=== PATIENT | male | born 1945 | race Caucasian/White ===

== ENCOUNTER 2021-11-04 13:50 | Outpatient (CLI) | payer MEDICARE | END 2021-11-04 23:59 | disposition home or self-care (01) | LOC: VAS 13:50 | PROVIDERS: ATTEND Podiatrist Foot & Ankle Surgery | DX: M79.671 Pain in right foot (principal); M19.071 Primary osteoarthritis, right ankle and foot; M25.471 Effusion, right ankle; M25.374 Other instability, right foot; M21.41 Flat foot [pes planus] (acquired), right foot; M25.572 Pain in left ankle and joints of left foot; M25.371 Other instability, right ankle; M21.6X1 Other acquired deformities of right foot | CPT/HCPCS: 93970 ==

== ENCOUNTER → 2022-11-06 | Outpatient (CLI) | payer MEDICARE | END | disposition home or self-care (01) | LOC: RAD 14:05 | PROVIDERS: ATTEND Family Medicine | DX: Z01.818 Encounter for other preprocedural examination (principal); I44.4 Left anterior fascicular block | CPT/HCPCS: 93005 ==

== ENCOUNTER 2022-12-30 16:00 | Outpatient (CLI) | payer MEDICARE ==
[2022-12-30] MEDS ORDERED: ACET-812 PO (16:17)
[2022-12-30] MEDS ORDERED: QUET400T13 PO (16:17)
[2022-12-30] MEDS ORDERED: LEVO150T8 PO (16:17)
[2022-12-30] MEDS ORDERED: DIVA-76 PO (16:17)
[2022-12-30] MEDS ORDERED: CHOL500050 PO (16:17)
[2022-12-30 16:20] LABS: BASOPHILS % (AUTO) 0.3 % (0-1); CLARITY,URINE CLEAR (Clear); COLOR,URINE YELLOW (Yellow); EOSINOPHILS % (AUTO) 0.3 % (0-6); GLUCOSE, URINE NEGATIVE (Neg); KETONES,URINE NEGATIVE (Neg); LEUKOCYTE ESTERASE ,URINE NEGATIVE (Neg); LYMPHOCYTES # (AUTO) 1.2 X10'3 (1.1-4.8); LYMPHOCYTES % (AUTO) 19.6 % (21-51); MEAN CORPUSCULAR HEMOGLOBIN 28.8 PG (27.0-31.0); MEAN CORPUSCULAR HGB CONC 33.1 g/dL (33.0-36.5); MEAN CORPUSCULAR VOLUME 86.9 FL (78-98); MEAN PLATELET VOLUME 7.5 FL (7.4-10.4); MONOCYTES # (AUTO) 0.8 X10'3 (0-0.9); MONOCYTES % (AUTO) 12.8 % (2-12); NEUTROPHILS # (AUTO) 4.2 X10'3 (1.8-7.7); NITRITES, URINE NEGATIVE (Neg); OCCULT BLOOD,URINE NEGATIVE (Neg); PH,URINE 5.5 (4.8-8.0); PRE OP HEMATOCRIT 37.2 % (42.0-52.0); PRE OP HEMOGLOBIN 12.3 g/dL (14.0-17.9); PRE OP PLATELET COUNT 277 X10'3 (140-440); PROTEIN,URINE NEGATIVE (Neg); RED BLOOD COUNT 4.29 X10'6 (4.70-6.10); RED CELL DISTRIBUTION WIDTH 13.9 % (11.5-14.5); UROBILINOGEN,URINE 0.2 E.U/dL (0.2-1.0)
[2022-12-30 16:21] LABS: UA COLLECTION TYPE CLN CATCH MIDSTREAM
[2022-12-30 16:31] LABS: ALBUMIN 3.2 G/DL (3.4-5.0); ALBUMIN/GLOBULIN RATIO 0.7 (1.1-1.5); ALKALINE PHOSPHATASE 71 IU/L (46-116); BLOOD UREA NITROGEN 26 MG/DL (7-18); BUN/CREATININE RATIO 24.1 (10.0-20.0); CALCIUM 9.7 MG/DL (8.5-10.1); CHLORIDE 104 MMOL/L (99-107); CREATININE 1.08 MG/DL (0.60-1.10); PRE OP ALT 17 U/L (30-65); PRE OP ANION GAP 7 (8-16); PRE OP AST 15 U/L (10-37); PRE OP BILIRUB, TOTAL 0.4 MG/DL (0.0-1.0); PRE OP GLUCOSE 88 MG/DL (70-104); PRE OP POTASSIUM 4.8 MMOL/L (3.4-5.1); PRE OP SODIUM 137 MMOL/L (135-145); TOTAL CARBON DIOXIDE 26.5 MMOL/L (24-32); TOTAL PROTEIN 7.5 G/DL (6.4-8.2); eGFR 66 ML/MIN
== END 2022-12-30 23:59 | disposition home or self-care (01) ==
LOC: LAB 16:00 → EDSTATUS 01-08 12:45
PROVIDERS: ATTEND Podiatrist Foot & Ankle Surgery
DX: S81.801A Unspecified open wound, right lower leg, initial encounter (principal); T81.31XA Disruption of external operation (surgical) wound, not elsewhere classified, initial encounter; M86.9 Osteomyelitis, unspecified; M79.671 Pain in right foot; M19.071 Primary osteoarthritis, right ankle and foot; M25.471 Effusion, right ankle; M25.374 Other instability, right foot; M21.41 Flat foot [pes planus] (acquired), right foot; M25.572 Pain in left ankle and joints of left foot; M25.371 Other instability, right ankle; M21.6X1 Other acquired deformities of right foot; I99.8 Other disorder of circulatory system; X58.XXXA Exposure to other specified factors, initial encounter; Y93.89 Activity, other specified; Y92.89 Other specified places as the place of occurrence of the external cause; Y99.8 Other external cause status; Y83.8 Other surgical procedures as the cause of abnormal reaction of the patient, or of later complication, without mention of misadventure at the time of the procedure
CPT/HCPCS: 36415; 80053; 81003; 85025

== ENCOUNTER 2024-12-30 10:13 | Outpatient (CLI) | payer MEDICARE ==
[~2024-12-30 10:13] MED LIST: ACET-812 PO; CHOL500050 PO; DIVA-76 PO; LEVO150T8 PO; QUET400T13 PO
[2024-12-30 11:03] LABS: ALBUMIN 2.8 G/DL (3.4-5.0); ANION GAP 6 (8-16); BLOOD UREA NITROGEN 18 MG/DL (7-18); CALCIUM 9.1 MG/DL (8.5-10.1); CHLORIDE 108 MMOL/L (99-107); GLUCOSE 81 MG/DL (70-104); POTASSIUM 4.4 MMOL/L (3.5-5.1); SODIUM 140 MMOL/L (135-145); TOTAL CARBON DIOXIDE 25.7 MMOL/L (24-32)
[2024-12-30 11:06] LABS: BUN/CREATININE RATIO 17.8 (10.0-20.0); CREATININE 1.01 MG/DL (0.60-1.10); eGFR 71 ML/MIN
[2024-12-30] MEDS ORDERED: GADOTERATE MEGLUMINE 7.5 MMOL/15 ML VIAL IV ONE (20:33)
== END 2024-12-30 23:59 | disposition home or self-care (01) ==
LOC: MRI 10:13
PROVIDERS: ATTEND Podiatrist Foot & Ankle Surgery
DX: S81.801A Unspecified open wound, right lower leg, initial encounter (principal); M19.071 Primary osteoarthritis, right ankle and foot; M25.471 Effusion, right ankle; M25.374 Other instability, right foot; T81.31XA Disruption of external operation (surgical) wound, not elsewhere classified, initial encounter; M79.671 Pain in right foot; R60.0 Localized edema; M21.41 Flat foot [pes planus] (acquired), right foot; M25.572 Pain in left ankle and joints of left foot; M25.371 Other instability, right ankle; M21.6X1 Other acquired deformities of right foot; I99.8 Other disorder of circulatory system; M86.9 Osteomyelitis, unspecified; X58.XXXA Exposure to other specified factors, initial encounter; Y93.89 Activity, other specified; Y92.89 Other specified places as the place of occurrence of the external cause; Y99.8 Other external cause status; Z98.890 Other specified postprocedural states
CPT/HCPCS: 36415; 73720; 80048; A9575